=== PATIENT | male | born 1995 | race American Indian/Alaskan Native ===

== ENCOUNTER 2020-05-29 12:38 | Outpatient (CLI) | payer OTHER ==
--- NOTE | 2020-05-29 14:45 | XRay Report ---
RIGHT KNEE 2 VIEWS INDICATION / CLINICAL INFORMATION: KNEE PAIN. COMPARISON: None available. FINDINGS: No significant skeletal abnormality. Signer Name: Kimani Wren MD FACR Signed: 05/29/2020 2:44 PM Workstation Name: [email or web address]
--- NOTE | 2020-05-29 14:48 | XRay Report ---
LUMBAR SPINE 3 VIEWS INDICATION / CLINICAL INFORMATION: BACK PAIN. COMPARISON: None available. FINDINGS: No significant skeletal abnormality Signer Name: Kimani Wren MD FACR Signed: 05/29/2020 2:47 PM Workstation Name: [email or web address]
--- NOTE | 2020-05-29 22:45 | XRay Report ---
LEFT SHOULDER 3 VIEW(S) INDICATION / CLINICAL INFORMATION: PAIN COMPARISON: None available. FINDINGS: BONES / JOINT(S): No acute fracture or subluxation. No significant arthritis. SOFT TISSUES: No significant abnormality. ADDITIONAL FINDINGS: None. Signer Name: Willy Ambrocio MD Signed: 05/29/2020 10:44 PM Workstation Name: [email or web address]
== END 2020-05-29 12:39 | disposition home or self-care (01) ==
LOC: XRAY 12:38
PROVIDERS: ATTEND Internal Medicine
DX: M25.561 Pain in right knee (principal); M54.5 Low back pain; M25.512 Pain in left shoulder; F43.10 Post-traumatic stress disorder, unspecified
CPT/HCPCS: 72100